=== PATIENT | male | born 1990 | race Caucasian/White ===

== ENCOUNTER 2022-03-02 17:56 | Emergency (ER) | payer SELFPAY ==
[~2022-03-02] VITALS: Ht 172.7 cm; Wt 110.2 kg
--- NOTE | 2022-03-02 18:49 | NUR ---
jammie, flu swabbed at this time, placed in specimen box
[2022-03-02 18:50] VITALS: BP 119/67
--- NOTE | 2022-03-02 18:51 | NUR ---
Patient discharged with v/s stable. Written and verbal after care instructions FOR [employer]ALI AND ACUTE BACK PAIN given and explained. Patient alert, oriented and verbalized understanding of instructions. Ambulatory with steady gait. All questions addressed prior to discharge. ID band removed. Patient advised to follow up with PMD. Rx of IBUPROFEN AND ROBAXIN given. Opportunity to ask questions provided and answered.
[2022-03-02] MEDS ORDERED: IBUP-2213 PO (20:25)
[2022-03-02] MEDS ORDERED: FLONAS NS (20:25)
[2022-03-02] MEDS ORDERED: PROM118S5 PO (20:25)
--- NOTE | 2022-03-02 20:41 | NUR ---
Patient discharged with v/s stable. Written and verbal after care instructions given and explained. Patient verbalized understanding. Ambulatory with steady gait. All questions addressed prior to discharge. Advised to follow up with PMD.
== END 2022-03-02 20:41 | disposition home or self-care (01) ==
LOC: MED 17:56
DX: J06.9 Acute upper respiratory infection, unspecified (principal); Z20.822 Contact with and (suspected) exposure to COVID-19
CPT/HCPCS: 71045; 99284

== ENCOUNTER 2022-06-24 19:12 | Emergency (ER) | payer SELFPAY ==
[~2022-06-24] VITALS: Ht 172.7 cm; Wt 126.1 kg
[~2022-06-24 19:12] MED LIST: FLONAS NS; IBUP-2213 PO; PROM118S5 PO
[2022-06-24 19:18] VITALS: BP 133/78
[2022-06-24 20:20] VITALS: BP 133/78
--- NOTE | 2022-06-24 20:22 | NUR ---
COVID-19 and flu swabs collected and sent to lab.
--- NOTE | 2022-06-24 21:05 | NUR ---
PT TAKEN TO BED 5
[2022-06-24] MEDS ORDERED: KETOROLAC 30 MG/ML VIAL IM ONE (21:30)
[2022-06-24] MEDS ORDERED: [UNRECOGNIZED DRUG - CODE] PO (22:03)
[2022-06-24] MEDS ORDERED: BENZ150C2 PO (22:03)
[2022-06-24] MEDS ORDERED: DEXT118S25 PO (22:03)
[2022-06-24] MEDS ORDERED: IBUP-2213 PO (22:04)
--- NOTE | 2022-06-24 22:18 | NUR ---
Patient discharged with v/s stable. Written and verbal after care instructions given and explained. Patient verbalized understanding. Ambulatory with . All questions addressed prior to discharge. Advised to follow up with PMD.
== END 2022-06-24 22:18 | disposition home or self-care (01) ==
LOC: MED 19:12
DX: J06.9 Acute upper respiratory infection, unspecified (principal); Z20.822 Contact with and (suspected) exposure to COVID-19; F14.90 Cocaine use, unspecified, uncomplicated; Z79.899 Other long term (current) drug therapy
CPT/HCPCS: 87426; 87804; 96372; 99283; J1885